=== PATIENT | female | born 1990 | race Caucasian/White ===

== ENCOUNTER 2021-01-22 09:47 | Emergency (ER) | payer OTHER, SELFPAY ==
--- NOTE | 2021-01-22 09:51 | ED.URI ---
HPI - URI/Sore Throat General Chief Complaint: Skin/Abscess/Foreign Body Stated Complaint: Rash on Hands/Feet/ Sore Throat Time Seen by Provider: 01/22/21 10:16 Source: patient and RN notes reviewed Mode of arrival: ambulatory Limitations: no limitations History of Present Illness HPI Narrative: 30-year-old female presents concern for rash on the palms of her hands and the soles of her feet that is painful, sore throat. Reports mild rhinorrhea. She denies cough. Reports fatigue. She denies fever. Reports she had exposure to a baby and his father who had [id number]-mouth. She reports she took ibuprofen once with little relief. She denies any trouble swallowing or trouble breathing. MD elicited complaint: sore throat Related Data Home Medications Medication Instructions Recorded Confirmed etonogestrel-ethinyl estradiol 1 vag ring VAGINAL ONCE 01/22/21 01/22/21 [NuvaRing] Allergies Allergy/AdvReac Type Severity Reaction Status Date / Time prednisone Allergy Hives Verified 01/22/21 10:16 Honey Bee Allergy Unknown Anaphylactic Uncoded 01/22/21 10:15 Shock Review of Systems Review of Systems: CONSTITUTIONAL: Denies malaise, chills, sweats, or fever. Reports fatigue EYES: Denies visual changes, redness, or discharge. ENT: Reports rhinorrhea, sore throat. Denies congestion, sinus pain, otalgia CARDIOVASCULAR: Denies chest pain, palpitations, or edema. RESPIRATORY: Reports cough. Denies dyspnea. GASTROINTESTINAL: Denies abdominal pain, nausea, vomiting, diarrhea SKIN: Reports painful rash in the palms of her hands and soles of her feet MUSCULOSKELETAL: Denies myalgia. NEUROLOGIC: Denies headache. All systems reviewed & are unremarkable except as noted in HPI and below PMFSH Comments At time of signature, agree with nursing past medical, surgical, social and family history. There is no relevant family history pertinent to the presenting complaint Exam Narrative: GENERAL: Well-appearing, well-nourished, and in no acute distress. HEAD: Normocephalic EYES: PERRLA, conjunctivae clear ENT: Nares clear, clear discharge. Mucous membranes moist. TM pearly olsen with sharp light reflex bilaterally; no tragal tenderness. Oropharynx erythematous without lesions. Tonsils not enlarged and without exudate, no drooling, no hoarseness, no trismus, uvula midline. NECK: Supple. No lymphadenopathy CHEST: Clear to auscultation, breath sounds equal. No wheezing, rhonchi, rales, or stridor. No respiratory distress, speaks in full sentences. HEART: Regular rate and rhythm. No murmur heard. SKIN: Warm, dry scattered erythematous papules noted to the palms of the hands and soles of the feet NEURO: Alert and oriented x3. PSYCH: Normal mood and affect Course Course Emergency Course: Patient is aware of diagnosis, understands and agrees to treatment plan. Anticipatory guidance given. Patient agrees to follow-up as directed and is aware of reasons to seek care at the emergency department. Portions of this record may have been created with voice recognition software Vital Signs Vital signs: Vital Signs Temperature 98 F 01/22/21 09:57 Pulse Rate 91 01/22/21 09:57 Respiratory Rate 20 01/22/21 09:57 Blood Pressure 132/85 01/22/21 09:57 Pulse Oximetry 100 01/22/21 09:57 Temperature 98 F 01/22/21 09:57 Pulse Rate 91 01/22/21 09:57 Respiratory Rate 20 01/22/21 09:57 Blood Pressure 132/85 01/22/21 09:57 Pulse Oximetry 100 01/22/21 09:57 Reviewed. MDM - URI/Sore Throat MDM Narrative Medical decision making narrative: Differential diagnosis considered: Padilla virus, strep pharyngitis, allergic rhinitis, upper respiratory tract infection, sinusitis, rhinosinusitis, nasopharyngitis. viral pharyngitis, otitis media, otitis externa, pneumonia, bronchitis, viral cough syndrome, viral syndrome, and influenza. Exam findings show no acute concerns or changes; patient is non-toxic appearing and is in no distress
[2021-01-22 09:57] VITALS: BP 132/85; PULSE 91; RESP 20; TEMP 36.6; O2SAT 100
== END 2021-01-22 10:30 | disposition home or self-care (01) ==
PROVIDERS: Emergency Provider Nurse Practitioner
DX: R21 Rash and other nonspecific skin eruption (principal); B97.11 Coxsackievirus as the cause of diseases classified elsewhere
CPT/HCPCS: 99203; G0463